=== PATIENT | male | born 1945 | race Caucasian/White ===

== ENCOUNTER 2018-05-26 16:46 | Inpatient (IN) ==
[2018-05-26] MEDS ORDERED: ALBUTEROL NEB SOLN 5 MG/ML 20 ML/BOTTLE CONT NEB STA (17:22)
[2018-05-26] MEDS ORDERED: MAGNESIUM SULF RIDER 2 GM in PREMIX 1 EACH IV STA (17:23)
[2018-05-26] MEDS ORDERED: methylPREDNISolone SOD SUC INJ 125 MG in SODIUM CHLORIDE 0.9% 100 ML IV STA (17:24)
[2018-05-26 17:26] LABS: Basophils # 0.1 10*3/uL (0.0-0.2); Basophils % 0.5 % (0.0-0.8); Eosinophils # 0.2 10*3/uL (0.0-0.87); Eosinophils % 1.9 % (0.00-10.9); Hematocrit 46.3 VOL% (42.0-52.0); Hemoglobin 16.1 GM/DL (14.0-18.0); Immature Granulocytes % 0.5 %; Immature Granulocytes Absolute 0.05 #; Lymphocytes % 20.2 % (21.2-54.2); Mean Corpuscular HGB Conc 34.8 GM/DL (32-36); Mean Corpuscular Hemoglobin 29 PG (27-34); Mean Corpuscular Volume 84.3 FL (87-102); Mean Platelet Volume 10.1 FL (9.6-12.0); Monocytes # 0.6 10*3/uL (0.11-0.8); Monocytes % 6.3 % (1.7-12.7); Neutrophils # 7.1 10*3/uL (1.4-7.4); Neutrophils % 70.6 % (38.7-73.9); Platelet Count 318 T/CUMM (130-400); Red Blood Count 5.49 MC/CUMM (3.8-5.5); Red Cell Distribution Width 12.9 % (9.3-17.3)
[2018-05-26] MEDS ORDERED: methylPREDNISolone SOD SUC 125 MG/2 ML VIAL IV STA (17:42)
[2018-05-26 17:47] LABS: Alanine Aminotransferase 37 U/L (16-61); Albumin 3.8 G/DL (3.4-5.0); Alkaline Phosphatase 84 U/L (45-117); Aspartate Amino Transferase 28 U/L (0-37); Blood Urea Nitrogen 19 MG/DL (7-18); Calcium 8.6 MG/DL (8.5-10.1); Glucose 179 MG/DL (74-106); Osmolality,Calculated 282.5 MOS/KG (273-304); Potassium 3.8 MMOL/L (3.5-5.1); Sodium 139 MMOL/L (136-145); Total Protein 7.6 G/DL (6.4-8.3); Troponin I Only < 0.015 NG/ML (0.00-0.045)
[2018-05-26] MEDS ORDERED: ALBUTEROL/IPRATROPIUM 3 ML NEB RESP TX PRN (21:48)
[2018-05-26] MEDS ORDERED: SODIUM CHLORIDE 0.9% 1,000 ML IV SCH (21:48)
[2018-05-26] MEDS ORDERED: ACETAMINOPHEN 325 MG TABLET PO PRN (21:48)
[2018-05-26] MEDS ORDERED: MORPHINE 4 MG/1 ML VIAL IV PRN (21:48)
[2018-05-26] MEDS ORDERED: ONDANSETRON 4 MG/2 ML VIAL IV PRN (21:48)
[2018-05-26] MEDS: MELOXICAM 7.5 MG TABLET PO SCH (22:18)
[2018-05-26] MEDS: BENAZEPRIL 10 MG TABLET PO SCH (22:18)
[2018-05-26] MEDS: MONTELUKAST 10 MG TABLET PO SCH (22:19)
[2018-05-26] MEDS: ATORVASTATIN 20 MG TABLET PO SCH (22:19)
[2018-05-26] MEDS: amLODIPine 5 MG TABLET PO SCH (22:19)
[2018-05-26] MEDS: DOCUSATE SODIUM 100 MG CAPSULE PO SCH (22:20)
[2018-05-26] MEDS: FUROSEMIDE 20 MG TABLET PO SCH (22:20)
[2018-05-26] MEDS: traMADol 50 MG TABLET PO SCH (22:20)
[2018-05-26] MEDS: ENOXAPARIN 40 MG/0.4 ML SYRINGE SUBCUT SCH (22:21)
[2018-05-26] MEDS: FLUTICASONE/SALMETEROL 250-50 DISKUS 14 DOSE INH SCH (22:22)
[2018-05-26] MEDS: GEMFIBROZIL 600 MG TABLET PO SCH (23:35)
[2018-05-27] MEDS: methylPREDNISolone SOD SUC 40 MG/1 ML VIAL IV SCH ×3 (02:09→17:50)
[2018-05-27 06:38] LABS: Basophils % 0.1 % (0.0-0.8); Hematocrit 44.9 VOL% (42.0-52.0); Hemoglobin 15.5 GM/DL (14.0-18.0); Immature Granulocytes % 0.6 %; Immature Granulocytes Absolute 0.09 #; Lymphocytes % 6.8 % (21.2-54.2); Mean Corpuscular HGB Conc 34.5 GM/DL (32-36); Mean Corpuscular Hemoglobin 29 PG (27-34); Mean Corpuscular Volume 84.4 FL (87-102); Monocytes # 0.1 10*3/uL (0.11-0.8); Monocytes % 0.9 % (1.7-12.7); Neutrophils % 91.6 % (38.7-73.9); Platelet Count 305 T/CUMM (130-400); Red Blood Count 5.32 MC/CUMM (3.8-5.5); White Blood Count 15.2 T/CUMM (4-12)
[2018-05-27 07:00] LABS: Lymphocytes 7 % (20-55); Segmented Neutrophils 91 % (50-85); Total Cells Counted 100
[2018-05-27 07:01] LABS: Hypochromasia 1+
[2018-05-27 07:02] LABS: Microcytosis 1+; Platelet Estimate Normal
[2018-05-27 07:08] LABS: Albumin 3.6 G/DL (3.4-5.0); Bilirubin,Total 0.5 MG/DL (0.2-1.0); Calcium 8.3 MG/DL (8.5-10.1); Osmolality,Calculated 283.5 MOS/KG (273-304); Potassium 4.1 MMOL/L (3.5-5.1); Risk Ratio 3.03; Total Protein 7.1 G/DL (6.4-8.3); VLDL CHOLESTEROL 17.2 MG/DL
[2018-05-27] MEDS: amLODIPine 5 MG TABLET PO SCH ×2 (09:22→21:51)
[2018-05-27] MEDS: POTASSIUM CHLORIDE 20 MEQ TABLET PO SCH (09:22)
[2018-05-27] MEDS: traMADol 50 MG TABLET PO SCH ×2 (09:22→21:52)
[2018-05-27] MEDS: PANTOPRAZOLE 40 MG TABLET PO SCH (09:22)
[2018-05-27] MEDS: BENAZEPRIL 10 MG TABLET PO SCH ×2 (09:22→21:52)
[2018-05-27] MEDS: GEMFIBROZIL 600 MG TABLET PO SCH ×2 (09:22→21:52)
[2018-05-27] MEDS: FLUTICASONE/SALMETEROL 250-50 DISKUS 14 DOSE INH SCH ×2 (09:23→21:54)
[2018-05-27] MEDS: DOCUSATE SODIUM 100 MG CAPSULE PO SCH ×2 (09:23→21:51)
[2018-05-27] MEDS: FEBUXOSTAT 80 MG TABLET PO SCH (09:23)
[2018-05-27] MEDS: MELOXICAM 7.5 MG TABLET PO SCH (21:51)
[2018-05-27] MEDS: MONTELUKAST 10 MG TABLET PO SCH (21:51)
[2018-05-27] MEDS: ATORVASTATIN 20 MG TABLET PO SCH (21:51)
[2018-05-27] MEDS: FUROSEMIDE 20 MG TABLET PO SCH (21:53)
[2018-05-27] MEDS: ENOXAPARIN 40 MG/0.4 ML SYRINGE SUBCUT SCH (21:54)
[2018-05-27] MEDS: traZODone 50 MG TABLET PO PRN (22:35)
[2018-05-28] MEDS: methylPREDNISolone SOD SUC 40 MG/1 ML VIAL IV SCH ×3 (01:10→17:14)
[2018-05-28] MEDS: traMADol 50 MG TABLET PO SCH ×2 (08:44→21:09)
[2018-05-28] MEDS: FLUTICASONE/SALMETEROL 250-50 DISKUS 14 DOSE INH SCH ×2 (08:44→21:10)
[2018-05-28] MEDS: FEBUXOSTAT 80 MG TABLET PO SCH (08:44)
[2018-05-28] MEDS: DOCUSATE SODIUM 100 MG CAPSULE PO SCH ×2 (08:44→21:09)
[2018-05-28] MEDS: BENAZEPRIL 10 MG TABLET PO SCH ×2 (08:44→21:09)
[2018-05-28] MEDS: amLODIPine 5 MG TABLET PO SCH ×2 (08:44→21:10)
[2018-05-28] MEDS: PANTOPRAZOLE 40 MG TABLET PO SCH (08:44)
[2018-05-28] MEDS: GEMFIBROZIL 600 MG TABLET PO SCH ×2 (08:45→21:09)
[2018-05-28] MEDS: POTASSIUM CHLORIDE 20 MEQ TABLET PO SCH (08:45)
[2018-05-28] MEDS: MELOXICAM 7.5 MG TABLET PO SCH (21:08)
[2018-05-28] MEDS: FUROSEMIDE 20 MG TABLET PO SCH (21:09)
[2018-05-28] MEDS: ATORVASTATIN 20 MG TABLET PO SCH (21:09)
[2018-05-28] MEDS: MONTELUKAST 10 MG TABLET PO SCH (21:09)
[2018-05-28] MEDS: ENOXAPARIN 40 MG/0.4 ML SYRINGE SUBCUT SCH (21:10)
[2018-05-28] MEDS: traZODone 50 MG TABLET PO PRN (21:13)
[2018-05-29] MEDS: methylPREDNISolone SOD SUC 40 MG/1 ML VIAL IV SCH ×3 (00:33→19:54)
[2018-05-29 06:00] LABS: Basophils % 0.1 % (0.0-0.8); Hematocrit 43.8 VOL% (42.0-52.0); Hemoglobin 14.6 GM/DL (14.0-18.0); Immature Granulocytes % 1.1 %; Lymphocytes # 0.9 10*3/uL (1.4-4.0); Lymphocytes % 4.8 % (21.2-54.2); Mean Corpuscular HGB Conc 33.3 GM/DL (32-36); Mean Corpuscular Hemoglobin 29 PG (27-34); Mean Platelet Volume 10.7 FL (9.6-12.0); Monocytes # 0.4 10*3/uL (0.11-0.8); Monocytes % 2.2 % (1.7-12.7); Neutrophils # 17.4 10*3/uL (1.4-7.4); Neutrophils % 91.8 % (38.7-73.9); Platelet Count 300 T/CUMM (130-400); Red Blood Count 4.98 MC/CUMM (3.8-5.5); Red Cell Distribution Width 13.2 % (9.3-17.3)
[2018-05-29 06:24] LABS: Band Neutrophils 2 % (0-10); Lymphocytes 6 % (20-55); Platelet Estimate Normal; Segmented Neutrophils 90 % (50-85); Total Cells Counted 100
[2018-05-29 06:25] LABS: Anisocytosis 1+; Macrocytosis 1+
[2018-05-29 06:30] LABS: Calcium 8.2 MG/DL (8.5-10.1); Osmolality,Calculated 287.4 MOS/KG (273-304); Potassium 4.3 MMOL/L (3.5-5.1)
[2018-05-29] MEDS: POTASSIUM CHLORIDE 20 MEQ TABLET PO SCH (08:38)
[2018-05-29] MEDS: amLODIPine 5 MG TABLET PO SCH (08:38)
[2018-05-29] MEDS: FEBUXOSTAT 80 MG TABLET PO SCH (08:38)
[2018-05-29] MEDS: traMADol 50 MG TABLET PO SCH ×2 (08:38→20:22)
[2018-05-29] MEDS: DOCUSATE SODIUM 100 MG CAPSULE PO SCH ×2 (08:38→20:21)
[2018-05-29] MEDS: GEMFIBROZIL 600 MG TABLET PO SCH ×2 (08:38→20:20)
[2018-05-29] MEDS: PANTOPRAZOLE 40 MG TABLET PO SCH (08:39)
[2018-05-29] MEDS: BENAZEPRIL 10 MG TABLET PO SCH (08:39)
[2018-05-29] MEDS: BUDESONIDE/FORMOTEROL 160-4.5 INHALER 6 GM INH SCH ×2 (08:43→20:20)
[2018-05-29] MEDS ORDERED: GLUCAGON 1 MG VIAL IM PRN (10:56)
[2018-05-29] MEDS ORDERED: DEXTROSE 50% 25 GM/50 ML VIAL IV PRN (10:56)
[2018-05-29] MEDS: ALBUTEROL/IPRATROPIUM 3 ML NEB RESP TX SCH ×4 (11:12→23:57)
[2018-05-29] MEDS: INSULIN LISPRO 100 UNIT/ML SUBCUT SCH ×3 (12:24→20:22)
[2018-05-29] MEDS: ATORVASTATIN 20 MG TABLET PO SCH (20:20)
[2018-05-29] MEDS: MONTELUKAST 10 MG TABLET PO SCH (20:20)
[2018-05-29] MEDS: ENOXAPARIN 40 MG/0.4 ML SYRINGE SUBCUT SCH (20:20)
[2018-05-29] MEDS: traZODone 50 MG TABLET PO PRN (20:21)
[2018-05-29] MEDS: MELOXICAM 7.5 MG TABLET PO SCH (20:21)
[2018-05-29] MEDS: FUROSEMIDE 20 MG TABLET PO SCH (20:21)
[2018-05-30] MEDS: ALBUTEROL/IPRATROPIUM 3 ML NEB RESP TX SCH ×6 (03:29→23:00)
[2018-05-30 05:54] LABS: Basophils % 0.1 % (0.0-0.8); Hematocrit 42.9 VOL% (42.0-52.0); Hemoglobin 14.7 GM/DL (14.0-18.0); Immature Granulocytes Absolute 0.15 #; Lymphocytes % 6.8 % (21.2-54.2); Mean Corpuscular HGB Conc 34.3 GM/DL (32-36); Mean Corpuscular Hemoglobin 29 PG (27-34); Mean Corpuscular Volume 85.3 FL (87-102); Monocytes % 6.4 % (1.7-12.7); Neutrophils # 12.8 10*3/uL (1.4-7.4); Neutrophils % 85.7 % (38.7-73.9); Platelet Count 298 T/CUMM (130-400); Red Blood Count 5.03 MC/CUMM (3.8-5.5); Red Cell Distribution Width 13.2 % (9.3-17.3); White Blood Count 14.9 T/CUMM (4-12)
[2018-05-30 06:18] LABS: Calcium 8.2 MG/DL (8.5-10.1); Osmolality,Calculated 286.7 MOS/KG (273-304); Potassium 4.1 MMOL/L (3.5-5.1)
[2018-05-30] MEDS: GEMFIBROZIL 600 MG TABLET PO SCH ×2 (09:11→20:50)
[2018-05-30] MEDS: BENAZEPRIL 10 MG TABLET PO SCH (09:11)
[2018-05-30] MEDS: traMADol 50 MG TABLET PO SCH ×2 (09:12→20:51)
[2018-05-30] MEDS: FEBUXOSTAT 80 MG TABLET PO SCH (09:12)
[2018-05-30] MEDS: INSULIN LISPRO 100 UNIT/ML SUBCUT SCH (09:13)
[2018-05-30] MEDS: DOCUSATE SODIUM 100 MG CAPSULE PO SCH ×2 (09:13→20:51)
[2018-05-30] MEDS: POTASSIUM CHLORIDE 20 MEQ TABLET PO SCH (09:13)
[2018-05-30] MEDS: BUDESONIDE/FORMOTEROL 160-4.5 INHALER 6 GM INH SCH ×2 (09:13→20:54)
[2018-05-30] MEDS: PANTOPRAZOLE 40 MG TABLET PO SCH (09:13)
[2018-05-30] MEDS: amLODIPine 5 MG TABLET PO SCH (09:18)
[2018-05-30] MEDS ORDERED: DEXTROSE 50% 25 GM/50 ML VIAL IV PRN (09:22)
[2018-05-30] MEDS ORDERED: GLUCAGON 1 MG VIAL IM PRN (09:22)
[2018-05-30] MEDS: predniSONE 20 MG TABLET PO SCH (12:20)
[2018-05-30] MEDS: metFORMIN 500 MG TABLET PO SCH (19:11)
[2018-05-30] MEDS: ENOXAPARIN 40 MG/0.4 ML SYRINGE SUBCUT SCH (20:44)
[2018-05-30] MEDS: MELOXICAM 7.5 MG TABLET PO SCH (20:50)
[2018-05-30] MEDS: MONTELUKAST 10 MG TABLET PO SCH (20:50)
[2018-05-30] MEDS: ATORVASTATIN 20 MG TABLET PO SCH (20:51)
[2018-05-30] MEDS: traZODone 50 MG TABLET PO PRN (20:52)
[2018-05-30] MEDS: FUROSEMIDE 20 MG TABLET PO SCH (20:52)
[2018-05-30] MEDS: methylPREDNISolone SOD SUC 40 MG/1 ML VIAL IV SCH (23:01)
[2018-05-31] MEDS: ALBUTEROL/IPRATROPIUM 3 ML NEB RESP TX SCH ×2 (03:00→07:22)
[2018-05-31 07:53] VITALS: BP 153/82
[2018-05-31] MEDS: PANTOPRAZOLE 40 MG TABLET PO SCH (08:58)
[2018-05-31] MEDS: FEBUXOSTAT 80 MG TABLET PO SCH (08:58)
[2018-05-31] MEDS: POTASSIUM CHLORIDE 20 MEQ TABLET PO SCH (08:58)
[2018-05-31] MEDS: predniSONE 20 MG TABLET PO SCH (08:58)
[2018-05-31] MEDS: GEMFIBROZIL 600 MG TABLET PO SCH (08:58)
[2018-05-31] MEDS: traMADol 50 MG TABLET PO SCH (08:59)
[2018-05-31] MEDS: amLODIPine 5 MG TABLET PO SCH (08:59)
[2018-05-31] MEDS: BENAZEPRIL 10 MG TABLET PO SCH (08:59)
[2018-05-31] MEDS: DOCUSATE SODIUM 100 MG CAPSULE PO SCH (08:59)
[2018-05-31] MEDS: metFORMIN 500 MG TABLET PO SCH (08:59)
[2018-05-31] MEDS: BUDESONIDE/FORMOTEROL 160-4.5 INHALER 6 GM INH SCH (09:00)
== END 2018-05-31 11:20 | disposition home or self-care (01) | DRG 191 ==
LOC: N.ED 16:46 → N.EDINP 16:46 → N.2E 21:31
PROVIDERS: ADMIT Family Medicine; ATTEND Family Medicine

== ENCOUNTER 2018-07-27 12:31 | Inpatient (IN) ==
[2018-07-27] MEDS ORDERED: ALBUTEROL 2.5 MG/3 ML NEB RESP TX PRN (12:33)
[2018-07-27] MEDS ORDERED: ACETAMINOPHEN 325 MG TABLET PO PRN (12:33)
[2018-07-27] MEDS ORDERED: DEXTROSE 50% 25 GM/50 ML VIAL IV PRN (12:33)
[2018-07-27] MEDS ORDERED: BISACODYL 10 MG SUPP RECTAL PRN (12:33)
[2018-07-27] MEDS ORDERED: GLUCAGON 1 MG VIAL IM PRN (12:33)
[2018-07-27] MEDS ORDERED: ONDANSETRON 4 MG/2 ML VIAL IV PRN (12:33)
[2018-07-27] MEDS: ALBUTEROL/IPRATROPIUM 3 ML NEB RESP TX SCH ×2 (14:11→19:35)
[2018-07-27 14:32] LABS: Basophils # 0.1 10*3/uL (0.0-0.2); Basophils % 0.6 % (0.0-0.8); Eosinophils % 9.2 % (0.00-10.9); Hematocrit 46.5 VOL% (42.0-52.0); Hemoglobin 15.3 GM/DL (14.0-18.0); Immature Granulocytes % 0.4 %; Immature Granulocytes Absolute 0.05 #; Lymphocytes # 1.9 10*3/uL (1.4-4.0); Lymphocytes % 16.7 % (21.2-54.2); Mean Corpuscular HGB Conc 32.9 GM/DL (32-36); Mean Corpuscular Hemoglobin 29 PG (27-34); Mean Corpuscular Volume 86.6 FL (87-102); Mean Platelet Volume 9.9 FL (9.6-12.0); Monocytes # 0.7 10*3/uL (0.11-0.8); Monocytes % 6.5 % (1.7-12.7); Neutrophils # 7.5 10*3/uL (1.4-7.4); Neutrophils % 66.6 % (38.7-73.9); Platelet Count 356 T/CUMM (130-400); Red Blood Count 5.37 MC/CUMM (3.8-5.5); Red Cell Distribution Width 12.8 % (9.3-17.3); White Blood Count 11.3 T/CUMM (4-12)
[2018-07-27 14:55] LABS: Albumin 3.8 G/DL (3.4-5.0); Bilirubin,Total 0.4 MG/DL (0.2-1.0); Calcium 8.8 MG/DL (8.5-10.1); Osmolality,Calculated 280.5 MOS/KG (273-304); Potassium 3.9 MMOL/L (3.5-5.1); Total Protein 7.4 G/DL (6.4-8.3)
[2018-07-27] MEDS: INSULIN LISPRO 100 UNIT/ML SUBCUT SCH ×2 (16:17→21:36)
[2018-07-27] MEDS: SODIUM CHLORIDE 0.45% 1,000 ML IV SCH (16:17)
[2018-07-27] MEDS: ENOXAPARIN 40 MG/0.4 ML SYRINGE SUBCUT SCH (16:17)
[2018-07-27] MEDS: methylPREDNISolone SOD SUC 125 MG/2 ML VIAL IV SCH ×2 (16:17→21:41)
[2018-07-27] MEDS: LEVOFLOXACIN INJ 500 MG in PREMIX 1 EACH IV SCH (17:21)
[2018-07-27] MEDS: metFORMIN 500 MG TABLET PO SCH (17:21)
[2018-07-27] MEDS: ZALEPLON 5 MG CAPSULE PO PRN (21:35)
[2018-07-27] MEDS: BUDESONIDE/FORMOTEROL 160-4.5 INHALER 6 GM INH SCH (21:36)
[2018-07-27] MEDS: MONTELUKAST 10 MG TABLET PO SCH (21:37)
[2018-07-27] MEDS: traMADol 50 MG TABLET PO SCH (21:37)
[2018-07-27] MEDS: GEMFIBROZIL 600 MG TABLET PO SCH (21:37)
[2018-07-27] MEDS: amLODIPine 5 MG TABLET PO SCH (21:37)
[2018-07-27] MEDS: MELOXICAM 7.5 MG TABLET PO SCH (21:38)
[2018-07-27] MEDS: FUROSEMIDE 20 MG TABLET PO SCH (21:38)
[2018-07-27] MEDS: ATORVASTATIN 20 MG TABLET PO SCH (21:41)
[2018-07-28] MEDS: ALBUTEROL/IPRATROPIUM 3 ML NEB RESP TX SCH ×4 (00:12→18:56)
[2018-07-28 01:47] LABS: Apearance,Urine CLEAR (Clear); Bilirubin,Urine Negative (Negative); Blood, Urine Negative (Negative); Glucose,Urine (UA) Negative (Negative); Hyaline Casts,Urine 3 /LPF (0-3); Ketones,Urine Negative (Negative); Mucus,Urine Occasional /LPF (Occasional); Nitrite,Urine Negative (Negative); Protein,Urine Negative; Urine Color Yellow (Yellow); Urine Specific Gravity 1.012 (1.001-1.035); Urine Urobilinogen < 2.0 EU/DL (0.2-1.0)
[2018-07-28] MEDS: methylPREDNISolone SOD SUC 125 MG/2 ML VIAL IV SCH ×2 (03:08→08:51)
[2018-07-28] MEDS: SODIUM CHLORIDE 0.45% 1,000 ML IV SCH (04:31)
[2018-07-28] MEDS: traMADol 50 MG TABLET PO SCH ×2 (08:51→20:55)
[2018-07-28] MEDS: INSULIN LISPRO 100 UNIT/ML SUBCUT SCH ×4 (08:51→20:58)
[2018-07-28] MEDS: metFORMIN 500 MG TABLET PO SCH ×2 (08:52→16:26)
[2018-07-28] MEDS: POTASSIUM CHLORIDE 20 MEQ TABLET PO SCH (08:52)
[2018-07-28] MEDS: PANTOPRAZOLE 40 MG TABLET PO SCH (08:52)
[2018-07-28] MEDS: amLODIPine 5 MG TABLET PO SCH ×2 (08:52→20:57)
[2018-07-28] MEDS: BUDESONIDE/FORMOTEROL 160-4.5 INHALER 6 GM INH SCH ×2 (08:52→21:22)
[2018-07-28] MEDS: FEBUXOSTAT 80 MG TABLET PO SCH (08:52)
[2018-07-28] MEDS: GEMFIBROZIL 600 MG TABLET PO SCH ×2 (08:52→20:55)
[2018-07-28] MEDS: methylPREDNISolone SOD SUC 40 MG/1 ML VIAL IV SCH ×2 (15:29→22:00)
[2018-07-28] MEDS: LEVOFLOXACIN INJ 500 MG in PREMIX 1 EACH IV SCH (20:54)
[2018-07-28] MEDS: ZALEPLON 5 MG CAPSULE PO ONE ×2 (20:55→20:58)
[2018-07-28] MEDS: MELOXICAM 7.5 MG TABLET PO SCH (20:55)
[2018-07-28] MEDS: FUROSEMIDE 20 MG TABLET PO SCH (20:55)
[2018-07-28] MEDS: MONTELUKAST 10 MG TABLET PO SCH (20:55)
[2018-07-28] MEDS: ENOXAPARIN 40 MG/0.4 ML SYRINGE SUBCUT SCH (20:57)
[2018-07-28] MEDS: ATORVASTATIN 20 MG TABLET PO SCH (20:57)
[2018-07-29] MEDS: ALBUTEROL/IPRATROPIUM 3 ML NEB RESP TX SCH ×4 (00:42→19:15)
[2018-07-29] MEDS: methylPREDNISolone SOD SUC 40 MG/1 ML VIAL IV SCH ×2 (06:14→17:07)
[2018-07-29] MEDS: INSULIN LISPRO 100 UNIT/ML SUBCUT SCH ×4 (08:52→21:21)
[2018-07-29] MEDS: metFORMIN 500 MG TABLET PO SCH ×2 (09:10→17:11)
[2018-07-29] MEDS: FEBUXOSTAT 80 MG TABLET PO SCH (09:10)
[2018-07-29] MEDS: GEMFIBROZIL 600 MG TABLET PO SCH ×2 (09:11→21:21)
[2018-07-29] MEDS: amLODIPine 5 MG TABLET PO SCH ×2 (09:11→21:21)
[2018-07-29] MEDS: PANTOPRAZOLE 40 MG TABLET PO SCH (09:11)
[2018-07-29] MEDS: POTASSIUM CHLORIDE 20 MEQ TABLET PO SCH (09:11)
[2018-07-29] MEDS: traMADol 50 MG TABLET PO SCH ×2 (09:11→21:20)
[2018-07-29] MEDS: BUDESONIDE/FORMOTEROL 160-4.5 INHALER 6 GM INH SCH ×2 (09:12→21:31)
[2018-07-29] MEDS: FUROSEMIDE 20 MG TABLET PO SCH (09:39)
[2018-07-29] MEDS: MELOXICAM 7.5 MG TABLET PO SCH (21:20)
[2018-07-29] MEDS: ENOXAPARIN 40 MG/0.4 ML SYRINGE SUBCUT SCH (21:20)
[2018-07-29] MEDS: MONTELUKAST 10 MG TABLET PO SCH (21:21)
[2018-07-29] MEDS: ATORVASTATIN 20 MG TABLET PO SCH (21:21)
[2018-07-29] MEDS: LEVOFLOXACIN INJ 500 MG in PREMIX 1 EACH IV SCH (21:22)
[2018-07-29] MEDS: ZALEPLON 5 MG CAPSULE PO PRN (21:34)
[2018-07-30] MEDS: ALBUTEROL/IPRATROPIUM 3 ML NEB RESP TX SCH ×2 (00:10→07:20)
[2018-07-30] MEDS: methylPREDNISolone SOD SUC 40 MG/1 ML VIAL IV SCH ×2 (01:01→09:27)
[2018-07-30 06:11] LABS: Basophils % 0.1 % (0.0-0.8); Hematocrit 44.5 VOL% (42.0-52.0); Hemoglobin 14.4 GM/DL (14.0-18.0); Mean Corpuscular HGB Conc 32.4 GM/DL (32-36); Mean Corpuscular Hemoglobin 29 PG (27-34); Mean Corpuscular Volume 88.8 FL (87-102); Mean Platelet Volume 10.4 FL (9.6-12.0); Monocytes # 0.5 10*3/uL (0.11-0.8); Monocytes % 2.4 % (1.7-12.7); Neutrophils # 17.6 10*3/uL (1.4-7.4); Neutrophils % 91.5 % (38.7-73.9); Platelet Count 368 T/CUMM (130-400); Red Blood Count 5.01 MC/CUMM (3.8-5.5); Red Cell Distribution Width 13.2 % (9.3-17.3); White Blood Count 19.3 T/CUMM (4-12)
[2018-07-30 06:26] LABS: Calcium 9.1 MG/DL (8.5-10.1); Osmolality,Calculated 286.5 MOS/KG (273-304); Potassium 4.9 MMOL/L (3.5-5.1)
[2018-07-30 07:57] LABS: Lymphocytes 7 % (20-55); Platelet Estimate Normal; Segmented Neutrophils 93 % (50-85); Total Cells Counted 100
[2018-07-30 08:26] VITALS: BP 129/69
[2018-07-30] MEDS: INSULIN LISPRO 100 UNIT/ML SUBCUT SCH (09:12)
[2018-07-30] MEDS: metFORMIN 500 MG TABLET PO SCH (09:20)
[2018-07-30] MEDS: amLODIPine 5 MG TABLET PO SCH (09:21)
[2018-07-30] MEDS: GEMFIBROZIL 600 MG TABLET PO SCH (09:21)
[2018-07-30] MEDS: FUROSEMIDE 20 MG TABLET PO SCH (09:21)
[2018-07-30] MEDS: FEBUXOSTAT 80 MG TABLET PO SCH (09:22)
[2018-07-30] MEDS: PANTOPRAZOLE 40 MG TABLET PO SCH (09:22)
[2018-07-30] MEDS: traMADol 50 MG TABLET PO SCH (09:22)
[2018-07-30] MEDS: BUDESONIDE/FORMOTEROL 160-4.5 INHALER 6 GM INH SCH (09:23)
[2018-07-30] MEDS: POTASSIUM CHLORIDE 20 MEQ TABLET PO SCH (09:34)
== END 2018-07-30 12:13 | disposition home or self-care (01) | DRG 191 ==
LOC: N.2E 13:19
PROVIDERS: ADMIT Family Medicine; ATTEND Family Medicine

== ENCOUNTER 2020-02-16 07:54 | Inpatient (IN) ==
[2020-02-16] MEDS ORDERED: SODIUM CHLORIDE 0.9% 1,000 ML IV STA (09:16)
[2020-02-16] MEDS ORDERED: ONDANSETRON 4 MG/2 ML VIAL IV STA (09:16)
[2020-02-16] MEDS ORDERED: HYDROmorphone 2 MG/1 ML VIAL IV STA (09:16)
[2020-02-16 09:26] LABS: Basophils % 0.2 % (0.0-0.8); Hematocrit 48.3 VOL% (42.0-52.0); Hemoglobin 15.8 GM/DL (14.0-18.0); Immature Granulocytes % 0.5 %; Immature Granulocytes Absolute 0.06 #; Lymphocytes # 1.7 10*3/uL (1.4-4.0); Lymphocytes % 12.8 % (21.2-54.2); Mean Corpuscular HGB Conc 32.7 GM/DL (32-36); Mean Corpuscular Volume 85.8 FL (87-102); Mean Platelet Volume 10.8 FL (9.6-12.0); Monocytes % 8.9 % (1.7-12.7); Neutrophils % 77.6 % (38.7-73.9); Platelet Count 380 T/CUMM (130-400); Red Blood Count 5.63 MC/CUMM (3.8-5.5); Red Cell Distribution Width 12.6 % (9.3-17.3); White Blood Count 12.9 T/CUMM (4-12)
[2020-02-16 09:42] LABS: Alanine Aminotransferase 30 U/L (16-61); Alkaline Phosphatase 104 U/L (45-117); Aspartate Amino Transferase 29 U/L (0-37); Blood Urea Nitrogen 13 MG/DL (7-18); Calcium 8.9 MG/DL (8.5-10.1); Estimated Glom Filtration Rate 114 ML/MIN; Glucose 149 MG/DL (74-106); Osmolality,Calculated 262.8 MOS/KG (273-304); Total Protein 7.1 G/DL (6.4-8.3)
[2020-02-16] MEDS ORDERED: cefTRIAXone 1,000 MG in SODIUM CHLORIDE 0.9% 100 ML IV STA (10:23)
[2020-02-16] MEDS ORDERED: PIPERACILLIN/TAZOBACTAM 3,375 MG in SODIUM CHLORIDE 0.9% 100 ML IV STA (10:23)
[2020-02-16] MEDS ORDERED: ACETAMINOPHEN 325 MG TABLET PO PRN (10:26)
[2020-02-16] MEDS ORDERED: PROMETHAZINE 25 MG/1 ML VIAL IM PRN (10:26)
[2020-02-16] MEDS ORDERED: HYDROmorphone 2 MG/1 ML VIAL IV PRN (10:26)
[2020-02-16 10:47] LABS: Apearance,Urine Slightly Hazy (Clear); Bilirubin,Urine Negative (Negative); Blood, Urine Negative (Negative); Glucose,Urine (UA) Negative (Negative); Hyaline Casts,Urine 16 /LPF (0-3); Ketones,Urine 80 mg/dL (Negative); Mucus,Urine Many /LPF (Occasional); Nitrite,Urine Negative (Negative); Protein,Urine 100 MG/DL; RBC,Urine 3 /HPF (0-4); Urine Color Amber (Yellow); Urine Specific Gravity 1.026 (1.001-1.035); Urine Urobilinogen < 2.0 EU/DL (0.2-1.0)
[2020-02-16] MEDS: SODIUM CHLORIDE 0.9% 1,000 ML IV SCH ×2 (12:13→21:30)
[2020-02-16] MEDS: ENOXAPARIN 40 MG/0.4 ML SYRINGE SUBCUT SCH (12:14)
[2020-02-16] MEDS ORDERED: HYDROXYCHLOROQUINE 200 MG TABLET PO ONE (15:00)
[2020-02-16] MEDS: ONDANSETRON 4 MG/2 ML VIAL IV PRN (18:34)
[2020-02-16] MEDS ORDERED: HYDROXYCHLOROQUINE 200 MG TABLET PO SCH (21:00)
[2020-02-16] MEDS: MELOXICAM 7.5 MG TABLET PO SCH (21:30)
[2020-02-16] MEDS: DOCUSATE SODIUM 100 MG CAPSULE PO SCH (21:30)
[2020-02-16] MEDS: ATORVASTATIN 20 MG TABLET PO SCH (21:30)
[2020-02-16] MEDS: amLODIPine 5 MG TABLET PO SCH (21:30)
[2020-02-16] MEDS: MONTELUKAST 10 MG TABLET PO SCH (21:30)
[2020-02-16] MEDS: ZALEPLON 5 MG CAPSULE PO PRN (22:50)
[2020-02-17] MEDS: SODIUM CHLORIDE 0.9% 1,000 ML IV SCH ×3 (04:54→23:40)
[2020-02-17 06:40] LABS: Calcium 7.9 MG/DL (8.5-10.1); Osmolality,Calculated 275.5 MOS/KG (273-304)
[2020-02-17] MEDS: ZINC SULFATE 220 MG CAPSULE PO SCH (08:30)
[2020-02-17] MEDS: amLODIPine 5 MG TABLET PO SCH ×2 (08:30→20:56)
[2020-02-17] MEDS: PANTOPRAZOLE 40 MG TABLET PO SCH (08:30)
[2020-02-17] MEDS: DOCUSATE SODIUM 100 MG CAPSULE PO SCH ×2 (08:30→20:56)
[2020-02-17] MEDS: Fluticasone-Umeclidin-Vilanter [Trelegy Ellipta] INH SCH (08:30)
[2020-02-17] MEDS: POTASSIUM CHLORIDE 20 MEQ TABLET PO SCH (08:30)
[2020-02-17] MEDS: allopurinoL 300 MG TABLET PO SCH (08:30)
[2020-02-17] MEDS ORDERED: HYDROXYCHLOROQUINE 200 MG TABLET PO ONE (09:00)
[2020-02-17] MEDS: ENOXAPARIN 40 MG/0.4 ML SYRINGE SUBCUT SCH (11:48)
[2020-02-17] MEDS: ONDANSETRON 4 MG/2 ML VIAL IV PRN ×2 (11:48→17:58)
[2020-02-17] MEDS: ATORVASTATIN 20 MG TABLET PO SCH (20:56)
[2020-02-17] MEDS: MELOXICAM 7.5 MG TABLET PO SCH (20:56)
[2020-02-17] MEDS: MONTELUKAST 10 MG TABLET PO SCH (20:56)
[2020-02-17] MEDS: HYDROXYCHLOROQUINE 200 MG TABLET PO SCH (20:56)
[2020-02-18] MEDS: ONDANSETRON 4 MG/2 ML VIAL IV PRN ×4 (00:05→17:36)
[2020-02-18] MEDS: SODIUM CHLORIDE 0.9% 1,000 ML IV SCH ×3 (06:25→23:24)
[2020-02-18] MEDS: amLODIPine 5 MG TABLET PO SCH ×2 (09:21→20:03)
[2020-02-18] MEDS: DOCUSATE SODIUM 100 MG CAPSULE PO SCH ×2 (09:21→20:03)
[2020-02-18] MEDS: HYDROXYCHLOROQUINE 200 MG TABLET PO SCH ×2 (09:21→20:03)
[2020-02-18] MEDS: POTASSIUM CHLORIDE 20 MEQ TABLET PO SCH (09:21)
[2020-02-18] MEDS: Fluticasone-Umeclidin-Vilanter [Trelegy Ellipta] INH SCH (09:21)
[2020-02-18] MEDS: PANTOPRAZOLE 40 MG TABLET PO SCH (09:21)
[2020-02-18] MEDS: ENOXAPARIN 40 MG/0.4 ML SYRINGE SUBCUT SCH (09:21)
[2020-02-18] MEDS: allopurinoL 300 MG TABLET PO SCH (09:21)
[2020-02-18] MEDS: MONTELUKAST 10 MG TABLET PO SCH (20:03)
[2020-02-18] MEDS: ZALEPLON 5 MG CAPSULE PO PRN (20:03)
[2020-02-18] MEDS: ATORVASTATIN 20 MG TABLET PO SCH (20:03)
[2020-02-18] MEDS: MELOXICAM 7.5 MG TABLET PO SCH (20:03)
[2020-02-19] MEDS: ONDANSETRON 4 MG/2 ML VIAL IV PRN ×2 (00:20→06:33)
[2020-02-19] MEDS: SODIUM CHLORIDE 0.9% 1,000 ML IV SCH ×2 (07:16→09:41)
[2020-02-19] MEDS: PANTOPRAZOLE 40 MG TABLET PO SCH (09:20)
[2020-02-19] MEDS: ZINC SULFATE 220 MG CAPSULE PO SCH (09:20)
[2020-02-19] MEDS: allopurinoL 300 MG TABLET PO SCH (09:20)
[2020-02-19] MEDS: DOCUSATE SODIUM 100 MG CAPSULE PO SCH (09:20)
[2020-02-19] MEDS: HYDROXYCHLOROQUINE 200 MG TABLET PO SCH (09:20)
[2020-02-19] MEDS: amLODIPine 5 MG TABLET PO SCH (09:20)
[2020-02-19] MEDS: POTASSIUM CHLORIDE 20 MEQ TABLET PO SCH (09:20)
[2020-02-19] MEDS: ENOXAPARIN 40 MG/0.4 ML SYRINGE SUBCUT SCH (09:31)
[2020-02-19] MEDS: Fluticasone-Umeclidin-Vilanter [Trelegy Ellipta] INH SCH (09:41)
[2020-02-19 09:53] VITALS: BP 158/77
== END 2020-02-19 10:27 | disposition home health service (06) | DRG 178 ==
LOC: N.ED 07:54 → N.EDINP 10:26 → N.2W 11:11
PROVIDERS: ADMIT Family Medicine; ATTEND Family Medicine

== ENCOUNTER 2022-06-14 09:40 | Inpatient (IN) ==
[2022-06-14] MEDS ORDERED: methylPREDNISolone SOD SUC 125 MG/2 ML VIAL IV STA (09:58)
[2022-06-14] MEDS ORDERED: ALBUTEROL NEB SOLN 5 MG/ML 20 ML/BOTTLE CONT NEB SCH (10:00)
[2022-06-14] MEDS ORDERED: ALBUTEROL 2.5 MG/3 ML NEB RESP TX ONE (10:10)
[2022-06-14 10:12] LABS: Basophils % 0.3 % (0.0-0.8); Eosinophils # 0.9 10*3/uL (0.0-0.87); Eosinophils % 6.5 % (0.00-10.9); Hematocrit 44.5 VOL% (42.0-52.0); Hemoglobin 14.4 GM/DL (14.0-18.0); Immature Granulocytes % 0.4 %; Immature Granulocytes Absolute 0.06 #; Lymphocytes # 1.3 10*3/uL (1.4-4.0); Lymphocytes % 9.1 % (21.2-54.2); Mean Corpuscular HGB Conc 32.4 GM/DL (32-36); Mean Corpuscular Volume 88.5 FL (87-102); Mean Platelet Volume 10.2 FL (9.6-12.0); Monocytes # 0.9 10*3/uL (0.11-0.8); Monocytes % 6.4 % (1.7-12.7); Neutrophils % 77.3 % (38.7-73.9); Platelet Count 289 T/CUMM (130-400); Red Blood Count 5.03 MC/CUMM (3.8-5.5); Red Cell Distribution Width 13.2 % (9.3-17.3); White Blood Count 14.2 T/CUMM (4-12)
[2022-06-14 10:31] LABS: Albumin 3.4 G/DL (3.4-5.0); Bilirubin,Total 0.5 MG/DL (0.20-1.00); Calcium 8.9 MG/DL (8.5-10.1); Osmolality,Calculated 281.4 MOS/KG (273-304); Potassium 4.2 MMOL/L (3.5-5.1); Total Protein 6.7 G/DL (6.4-8.2)
[2022-06-14] MEDS ORDERED: ACETAMINOPHEN 325 MG TABLET PO PRN (11:49)
[2022-06-14] MEDS ORDERED: ONDANSETRON 4 MG/2 ML VIAL IV PRN (11:49)
[2022-06-14] MEDS ORDERED: ALBUTEROL/IPRATROPIUM 3 ML NEB RESP TX PRN (11:52)
[2022-06-14] MEDS: cefTRIAXone 1,000 MG in SODIUM CHLORIDE 0.9% 100 ML IV SCH (14:05)
[2022-06-14] MEDS: SODIUM CHLORIDE 0.45% 1,000 ML IV SCH ×2 (14:05→22:34)
[2022-06-14] MEDS: ENOXAPARIN 40 MG/0.4 ML SYRINGE SUBCUT SCH (14:05)
[2022-06-14] MEDS ORDERED: methylPREDNISolone SOD SUC 40 MG/1 ML VIAL ONE (16:41)
[2022-06-14] MEDS: metFORMIN 500 MG TABLET PO SCH (17:06)
[2022-06-14] MEDS: methylPREDNISolone SOD SUC 40 MG/1 ML VIAL IV SCH (17:07)
[2022-06-14] MEDS: ALBUTEROL/IPRATROPIUM 3 ML NEB RESP TX SCH (19:03)
[2022-06-14] MEDS: ATORVASTATIN 20 MG TABLET PO SCH (21:48)
[2022-06-14] MEDS: amLODIPine 5 MG TABLET PO SCH (21:48)
[2022-06-14] MEDS: traMADol 50 MG TABLET PO PRN (21:48)
[2022-06-14] MEDS: DOCUSATE SODIUM 100 MG CAPSULE PO SCH (21:48)
[2022-06-14] MEDS: MONTELUKAST 10 MG TABLET PO SCH (21:48)
[2022-06-15] MEDS: ALBUTEROL/IPRATROPIUM 3 ML NEB RESP TX SCH ×4 (00:12→19:54)
[2022-06-15] MEDS: methylPREDNISolone SOD SUC 40 MG/1 ML VIAL IV SCH ×3 (01:57→17:27)
[2022-06-15] MEDS: SODIUM CHLORIDE 0.45% 1,000 ML IV SCH ×3 (06:37→22:38)
[2022-06-15] MEDS: PANTOPRAZOLE 40 MG TABLET PO SCH (09:12)
[2022-06-15] MEDS: amLODIPine 5 MG TABLET PO SCH ×2 (09:12→22:34)
[2022-06-15] MEDS: POTASSIUM CHLORIDE 20 MEQ TABLET PO SCH (09:12)
[2022-06-15] MEDS: MELOXICAM 7.5 MG TABLET PO SCH (09:12)
[2022-06-15] MEDS: DOCUSATE SODIUM 100 MG CAPSULE PO SCH ×2 (09:12→22:34)
[2022-06-15] MEDS: metFORMIN 500 MG TABLET PO SCH ×2 (09:12→17:27)
[2022-06-15] MEDS: allopurinoL 300 MG TABLET PO SCH (09:13)
[2022-06-15] MEDS: FUROSEMIDE 20 MG TABLET PO SCH (09:13)
[2022-06-15] MEDS: cefTRIAXone 1,000 MG in SODIUM CHLORIDE 0.9% 100 ML IV SCH (09:18)
[2022-06-15] MEDS: traMADol 50 MG TABLET PO PRN (22:33)
[2022-06-15] MEDS: MONTELUKAST 10 MG TABLET PO SCH (22:34)
[2022-06-15] MEDS: ATORVASTATIN 20 MG TABLET PO SCH (22:34)
[2022-06-15] MEDS: ENOXAPARIN 40 MG/0.4 ML SYRINGE SUBCUT SCH (22:36)
[2022-06-16] MEDS: ALBUTEROL/IPRATROPIUM 3 ML NEB RESP TX SCH ×4 (00:43→18:50)
[2022-06-16] MEDS: methylPREDNISolone SOD SUC 40 MG/1 ML VIAL IV SCH (01:29)
[2022-06-16] MEDS: SODIUM CHLORIDE 0.45% 1,000 ML IV SCH (07:34)
[2022-06-16] MEDS: allopurinoL 300 MG TABLET PO SCH (08:47)
[2022-06-16] MEDS: DOCUSATE SODIUM 100 MG CAPSULE PO SCH ×2 (08:48→22:26)
[2022-06-16] MEDS: cefTRIAXone 1,000 MG in SODIUM CHLORIDE 0.9% 100 ML IV SCH (08:48)
[2022-06-16] MEDS: metFORMIN 500 MG TABLET PO SCH ×2 (08:48→17:13)
[2022-06-16] MEDS: FUROSEMIDE 20 MG TABLET PO SCH (08:48)
[2022-06-16] MEDS: predniSONE 20 MG TABLET PO SCH (08:48)
[2022-06-16] MEDS: PANTOPRAZOLE 40 MG TABLET PO SCH (08:48)
[2022-06-16] MEDS: MELOXICAM 7.5 MG TABLET PO SCH (08:48)
[2022-06-16] MEDS: POTASSIUM CHLORIDE 20 MEQ TABLET PO SCH (08:48)
[2022-06-16] MEDS: amLODIPine 5 MG TABLET PO SCH ×2 (08:48→22:26)
[2022-06-16] MEDS: FLUTICASONE/SALMETEROL 250-50 DISKUS 14 DOSE INH SCH ×2 (12:32→22:27)
[2022-06-16] MEDS: traMADol 50 MG TABLET PO PRN (22:25)
[2022-06-16] MEDS: ATORVASTATIN 20 MG TABLET PO SCH (22:25)
[2022-06-16] MEDS: ENOXAPARIN 40 MG/0.4 ML SYRINGE SUBCUT SCH (22:25)
[2022-06-16] MEDS: MONTELUKAST 10 MG TABLET PO SCH (22:25)
[2022-06-17] MEDS: ALBUTEROL/IPRATROPIUM 3 ML NEB RESP TX SCH ×2 (00:35→07:19)
[2022-06-17 08:33] VITALS: BP 131/70
[2022-06-17] MEDS: FUROSEMIDE 20 MG TABLET PO SCH (10:25)
[2022-06-17] MEDS: amLODIPine 5 MG TABLET PO SCH (10:25)
[2022-06-17] MEDS: allopurinoL 300 MG TABLET PO SCH (10:25)
[2022-06-17] MEDS: DOCUSATE SODIUM 100 MG CAPSULE PO SCH (10:25)
[2022-06-17] MEDS: PANTOPRAZOLE 40 MG TABLET PO SCH (10:26)
[2022-06-17] MEDS: POTASSIUM CHLORIDE 20 MEQ TABLET PO SCH (10:26)
[2022-06-17] MEDS: predniSONE 20 MG TABLET PO SCH (10:26)
[2022-06-17] MEDS: MELOXICAM 7.5 MG TABLET PO SCH (10:27)
[2022-06-17] MEDS: FLUTICASONE/SALMETEROL 250-50 DISKUS 14 DOSE INH SCH (10:27)
[2022-06-17] MEDS: metFORMIN 500 MG TABLET PO SCH (11:15)
[2022-06-17] MEDS: cefTRIAXone 1,000 MG in SODIUM CHLORIDE 0.9% 100 ML IV SCH (11:15)
== END 2022-06-17 11:10 | disposition home or self-care (01) | DRG 192 ==
LOC: EDUNIT# → EDBD → N.ED 09:40 → N.EDINP 11:49 → N.5E 12:09
PROVIDERS: ADMIT Family Medicine; ATTEND Family Medicine